=== PATIENT | male | born 1965 | race Caucasian/White ===

== ENCOUNTER 2017-01-06 12:23 | Emergency (ER) | payer OTHER ==
[~2017-01-06] VITALS: Ht 182.9 cm; Wt 79.5 kg
[~2017-01-06 12:23] MED LIST: METO25TA6 PO; PRE20 PO
[2017-01-06 12:33] VITALS: BP 118/77; PULSE 69; RESP 16; O2SAT 98
--- NOTE | 2017-01-06 12:43 | ED.REPORT ---
HPI-Abd Pain M 40 and Over Date of Service Jan 06, 2017 ED Provider: Geovanny Fuller MD Tono is a Slovak-speaking 51-year-old male with a history of Parkinson's disease who presents with chief complaint of nausea and vomiting. Reports three -day history of nausea and vomiting, epigastric abdominal pain, decreased appetite, feeling hot and cold and loose stools. Denies heartburn, hematemesis , hematochezia, melena, measured fever, chest pain, palpitations, cough, wheeze , shortness of breath. States he has been unable to take his medications for 3 days. Nursing Notes Stated Complaint: NAUSEA,VOMITING Chief Complaint: Male Abdominal Pain Nursing Notes Reviewed: Yes Allergies: Coded Allergies: No Known Allergies (Verified Allergy, Unknown, 11/16/16) Scheduled Metoprolol Tartrate (Metoprolol Tartrate) 25 Mg Tablet 12.5 MG PO BID In Slovak please Prednisone (PredniSONE) 20 Mg Tablet 20 MG PO DAILY Scheduled PRN Promethazine (Promethazine) 25 Mg Tablet 25 MG PO Q6H PRN PRN For Nausea General Time Seen by MD: 12:43 Chief Complaint Other (vomiting) Sudden in Onset?: No Past Medical History Past Medical History Parkinson's Disease causing chronic neck and bilateral shoulder pain Reports: Hypertension Past Surgical History None Family History noncontributory Smoking History Former Smoker Social History Alcohol Use: Denies alcohol use Drug Use: Denies drug use Other Social History: Occupation lives with family Ambulatory Status Independent Review of Systems Review of Systems Note: Negative unless stated otherwise in history of present illness Physical Exam General: Well appearing, well developed, well nourished, no acute distress. Head: Atraumatic, normocephalic. Eyes: No scleral icterus or injection. No discharge. Vision grossly intact. ENT: Voice clear, hearing grossly intact. Respiratory: Regular rate and rhythm. Breath sounds present, clear to auscultation and equal bilaterally. No respiratory distress. No increased work of breathing, speaks in complete sentences. Cardiovascular: Regular rate and rhythm, without murmur, gallop or rub. No pedal edema. Gastrointestinal: Abdomen slightly distended but non-tender without guarding or rebound. Bowel sounds normoactive. Skin: Warm and dry. Neurological: Grossly nonfocal. Psychological: Alert and oriented. Speech appropriate, linear and logical. Behavior appropriate. Initial Vital Signs Vital Signs (First) Date Time Temp Pulse Resp B/P Pulse Ox O2 Delivery O2 Flow Rate FiO2 01/06/17 12:33 36.0 69 16 118/77 98 01/06/17 16:04 Room Air Initial VS: Reviewed, Vital signs normal Interpretation & Diagnostics Lab Results Interpretation Result Diagram: 01/06/17 1330 01/06/17 1330 Test 01/06/17 13:30 01/06/17 16:19 White Blood Count 5.7th/mm3 (3.8-10.1) Red Blood Count 4.61mil/mm3 (4.40-5.80) Hemoglobin 14.5g/dL (13.8-17.2) Hematocrit 41.6% (41.0-50.0) Mean Corpuscular Volume 90.2fL (81-100) Mean Corpuscular Hemoglobin 31.5pg (27.0-35.0) Mean Corpuscular Hemoglobin Concent 34.9% (32.0-37.0) Red Cell Distribution Width 12.6% (12.3-15.4) Platelet Count 226bil/L (150-400) Neutrophils (%) (Auto) 35.8% (40-74) Lymphocytes (%) (Auto) 45.3% (14-46) Monocytes (%) (Auto) 16.5% (4-12) Eosinophils (%) (Auto) 1.6% (0-5) Basophils (%) (Auto) 0.4% (0-3) Sodium Level 134mEq/L (134-144) Potassium Level 3.6mEq/L (3.5-5.2) Chloride Level 93mEq/L (97-108) Carbon Dioxide Level 30mmol/L (18-29) Blood Urea Nitrogen 9mg/dL (6-24) Creatinine 0.72mg/dL (0.76-1.27) Estimat Glomerular Filtration Rate 122mL/min (>59) Glucose Level 99mg/dL (60-99) Calcium Level 9.4mg/dL (8.5-10.1) Total Bilirubin 0.5mg/dL (0.0-1.2) Aspartate Amino Transf (AST/SGOT) 10U/L (0-50) Alanine Aminotransferase (ALT/SGPT) 5U/L (0-44) Alkaline Phosphatase 70U/L (25-150) Total Protein 7.2g/dL (6.4-8.4) Albumin 4.3g/dL (3.4-5.0) Lipase 35U/L (13-60) Hold Duran Top Tube Received (Received) Urine Color Straw (YELLOW) Urine Appearance Clear (CLEAR,HAZY) Urine pH 7.0 (5.0-8.0) Urine Specific [place] 1.005 (1.003-1.035) Urine Protein Negativemg/dL (NEG,TRACE) Urine Glucose (UA) Negativemg/dL (NEGATIVE) Urine Ketones Negativemg/dL (NEGATIVE) Urine Occult Blood Trace (NEGATIVE) Urine Nitrite Negative (NEGATIVE) Urine Bilirubin Negative (NEGATIVE) Urine Urobilinogen Normalmg/dL (NORMAL) Urine Leukocyte Esterase Negative (NEGATIVE) Urine RBC 0-2/hpf (0-2) Urine WBC 0-5/hpf (0-5) Urine Epithelial Cells None/hpf (NONE-MOD) Urine Crystals None seen (NONE SEEN) Urine Bacteria Few/hpf (NONE-FEW) Urine Hyaline Casts None/lpf (NONE) Urine Granular Casts None seen (NONE SEEN) Urine Waxy Casts None seen (NONE SEEN) Urine Red Blood Cell Casts None seen (NONE SEEN) Urine White Blood Cell Casts None seen (NONE SEEN) Urine Mucus None seen (None Seen) Urine Trichomonas None seen (NONE SEEN) Urine Yeast None (NONE SEEN) Urinalysis Comment None Urine Culture Reflexed Not indicated Lab Results Interpretation: Chloride slightly low at 93 Carbon dioxide slightly high at 30 creatinine low at 0.72 Not thought to be clinically relevant. Re-Eval/Medical Decision Med Decision/Clinical Course 51-year-old male with chief complaint of vomiting for 3 days. Physical exam reveals only mild epigastric tenderness without guarding or rebound. CBC, CMP and lipase are essentially normal, urinalysis is normal. Patient responds well to antiemetics, passes by mouth challenge. I believe this is a viral gastritis as opposed to bleeding ulcer, pancreatitis, cholecystitis, appendicitis. I believe he is stable and safe for discharge Discussed this with the patient who does not appear happy about that diagnosis but agrees with the plan and is prepared for discharge. Time of Eval: 17:12 Re-Evaluation/Progress Note: Patient reports that he still feels quite tired. He successfully drank a lot of water and was able to keep it down and his nausea is improved. Discharge & Departure Primary Impression: Gastritis Disposition: Home Vital Signs - All Vital Signs Date Time Temp Pulse Resp B/P Pulse Ox O2 Delivery O2 Flow Rate FiO2 01/06/17 17:23 36.0 59 18 138/67 97 Room Air 01/06/17 16:33 59 138/67 97 Room Air 01/06/17 16:04 65 18 150/77 99 Room Air 01/06/17 12:33 36.0 69 16 118/77 98 )( All Prior VS Reviewed: Yes Condition: Stable Patient Instructions: Gastritis (ED) Additional Instructions: Evaluation for vomiting the emergency department. Based on physical examination , blood, urine tests I feel it is unlikely that the pain is caused by a dangerous condition such as pancreatitis, bleeding ulcer, or gallbladder infection. I believe this is most likely a viral gastritis. This should pass in a few days. I will give a prescription for the antinausea medication that worked for you in the emergency department. Rest, drink small amounts of fluid throughout the day , each small amounts of food as tolerated. If you are not feeling substantially better in 3 days' please follow up with her primary care provider. Return to emergency department for new or worsening symptoms including bloody/ tarry stool, vomiting blood, increasing abdominal pain Referrals: Reggie Longoria MD (PCP) EDSupervising Provider for APC: Geovanny Fuller MD Attending Statement Attending attestation: I saw this patient in conjunction with Alexx Goel PA-C. I agree with the workup, evaluation, treatment and disposition. Geovanny Vazquez MD, MD Jan 06, 2017 12:43 Alexx Goel PA-C Jan 06, 2017 15:10
[2017-01-06] MEDS ORDERED: 0.9% Sodium Chloride 1,000 ML IV ONE ×2 (13:04→15:05)
[2017-01-06] MEDS ORDERED: Ondansetron 2 mg/mL 2 mL Inj ONE (13:38)
[2017-01-06 14:06] LABS: BASOPHILS % (AUTO) 0.4 % (0-3); EOSINOPHILS % (AUTO) 1.6 % (0-5); MONOCYTES % (AUTO) 16.5 % (4-12); Mean Corpuscular Hemoglobin 31.5 pg (27.0-35.0); Mean Corpuscular Volume 90.2 fL (81-100); NEUTROPHILS % (AUTO) 35.8 % (40-74); Platelet Count 226 bil/L (150-400)
[2017-01-06] MEDS ORDERED: Promethazine Inj 25 MG in Dextrose 5%-Pha MIX 50 ML IV ONE (15:05)
[2017-01-06 16:04] VITALS: BP 150/77; PULSE 65; RESP 18; O2SAT 99
[2017-01-06 16:33] VITALS: BP 138/67; PULSE 59; O2SAT 97
[2017-01-06 16:54] LABS: APPEARANCE,URINE CLEAR (CLEAR,HAZY); COLOR,URINE STRAW (YELLOW); OCCULT BLOOD,URINE TRACE (NEGATIVE); UROBILINOGEN,URINE NORMAL (NORMAL)
[2017-01-06] MEDS ORDERED: PROM25TA14 PO (17:16)
[2017-01-06 17:23] VITALS: BP 138/67; PULSE 59; RESP 18; O2SAT 97
== END 2017-01-06 17:24 | disposition home or self-care (01) ==
LOC: SED 12:23
DX: K29.70 Gastritis, unspecified, without bleeding (principal); G20 Parkinson's disease; I10 Essential (primary) hypertension; Z87.891 Personal history of nicotine dependence
CPT/HCPCS: 36415; 80053; 81000; 83690; 85025; 96361; 96374; 96375; 99284; J2405; J2550; J7030

== ENCOUNTER 2017-02-02 14:34 | Emergency (ER) | payer OTHER ==
[~2017-02-02] VITALS: Ht 180.3 cm; Wt 86.0 kg
[~2017-02-02 14:34] MED LIST changes: +PROM25TA14 PO
[2017-02-02 15:05] VITALS: BP 130/69; PULSE 77; RESP 16; O2SAT 97
[2017-02-02] MEDS ORDERED: 0.9% Sodium Chloride 1,000 ML IV ONE (15:17)
[2017-02-02] MEDS: Ondansetron 2 mg/mL 2 mL Inj IVPUSH PRN ×3 (15:36→20:18)
[2017-02-02 15:48] LABS: BASOPHILS % (AUTO) 0.1 % (0-3); EOSINOPHILS % (AUTO) 0.9 % (0-5); MONOCYTES % (AUTO) 11.7 % (4-12); Mean Corpuscular Hemoglobin 31.3 pg (27.0-35.0); Mean Corpuscular Volume 89.4 fL (81-100); NEUTROPHILS % (AUTO) 63.1 % (40-74); Platelet Count 208 bil/L (150-400)
[2017-02-02 16:09] LABS: Magnesium 1.8 mg/dL (1.6-2.6)
--- NOTE | 2017-02-02 17:08 | ED.REPORT ---
HPI-Abd Pain M 40 and Over Date of Service Feb 02, 2017 ED Provider: Eze Weston MD The patient is a 51 year old, Citizen Of [place] speaking, male w/ a hx of Parkinsons disease and HTN who presents to the ED accompanied by his due to shaking onset this morning. 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 Associated symptoms include nausea, vomiting and diarrhea. Denies issues with anxiety and dysuria. Onset thought to be related to starting carisoprodil. Currently on Tramadol and Baclofen (50 mg 3x/day), he has been out Baclofen for 4 days. Nursing Notes Stated Complaint: NAUSEA,VOMITING Chief Complaint: General Complaint Allergies: Coded Allergies: No Known Allergies (Verified Allergy, Unknown, 11/16/16) Scheduled Metoprolol Tartrate (Metoprolol Tartrate) 25 Mg Tablet 12.5 MG PO BID In Citizen [place] please Prednisone (PredniSONE) 20 Mg Tablet 20 MG PO DAILY Scheduled PRN Promethazine (Promethazine) 25 Mg Tablet 25 MG PO Q6H PRN PRN For Nausea General Time Seen by MD: 17:04 Chief Complaint Other (shaking) Hx Obtained From: Patient Arrived By: Walk-in Sudden in Onset?: Yes Onset Occurred: 5 - 8 hours ago Symptom Duration: Since onset Progression since Onset: Gradually worsening Recent Healthcare: Recent doctor visit Similar Sx Previous: Yes Past Medical History Past Medical History Parkinson's Disease causing chronic neck and bilateral shoulder pain Reports: Hypertension Past Surgical History None Family History noncontributory Smoking History Former Smoker Social History Alcohol Use: Denies alcohol use Drug Use: Denies drug use Other Social History: Occupation lives with family Ambulatory Status Independent Review of Systems GI: Reports: Diarrhea, Nausea, Vomiting Male: Denies Dysuria Complete sys rev & neg: except as marked. Neurologic: Reports: Shaking Psychiatric: Denies: Anxiety Physical Exam Initial Vital Signs Vital Signs (First) Date Time Temp Pulse Resp B/P Pulse Ox O2 Delivery O2 Flow Rate FiO2 02/02/17 15:05 36.6 77 16 130/69 97 Room Air Initial VS: Reviewed Head / Eyes: Atraumatic, Normocephalic, PERRL ENT: Mucous membranes moist, Conjunctiva normal, No scleral icterus Neck: Supple, Non-tender, Full range of motion Extremities: Vascular intact, Neuro intact, No swelling, No tenderness Skin: Warm, Dry, No cyanosis Neurologic: Alert, Oriented, Nonfocal Psychiatric: Mood/affect normal, Behavior normal, Normal thought content General/Constitutional: Awake, Alert, Cooperative Behavior: Positive: Anxious coarse tremor Respiratory / Chest: Atraumatic, Breath sounds NL, No respiratory distress Cardiovascular: Heart rate NL, Regular rhythm, Heart sounds NL, No gallop, No murmurs, No rubs Abdomen: Atraumatic, Soft, Non-tender, No guarding, No rebound, BS normoactive Back: Atraumatic, Inspection NL, Full range of motion, Non-tender Interpretation & Diagnostics Lab Results Interpretation Result Diagram: 02/02/17 1530 02/02/17 1530 Test 02/02/17 15:30 02/02/17 20:10 White Blood Count 8.5th/mm3 (3.8-10.1) Red Blood Count 4.34mil/mm3 (4.40-5.80) Hemoglobin 13.6g/dL (13.8-17.2) Hematocrit 38.8% (41.0-50.0) Mean Corpuscular Volume 89.4fL (81-100) Mean Corpuscular Hemoglobin 31.3pg (27.0-35.0) Mean Corpuscular Hemoglobin Concent 35.1% (32.0-37.0) Red Cell Distribution Width 13.4% (12.3-15.4) Platelet Count 208bil/L (150-400) Neutrophils (%) (Auto) 63.1% (40-74) Lymphocytes (%) (Auto) 24.0% (14-46) Monocytes (%) (Auto) 11.7% (4-12) Eosinophils (%) (Auto) 0.9% (0-5) Basophils (%) (Auto) 0.1% (0-3) Sodium Level 131mEq/L (134-144) Potassium Level 3.4mEq/L (3.5-5.2) Chloride Level 94mEq/L (97-108) Carbon Dioxide Level 23mmol/L (18-29) Blood Urea Nitrogen 12mg/dL (6-24) Creatinine 0.76mg/dL (0.76-1.27) Estimat Glomerular Filtration Rate 115mL/min (>59) Glucose Level 137mg/dL (60-99) Calcium Level 8.3mg/dL (8.5-10.1) Magnesium Level 1.8mg/dL (1.6-2.6) Total Bilirubin 0.2mg/dL (0.0-1.2) Aspartate Amino Transf (AST/SGOT) 9U/L (0-50) Alanine Aminotransferase (ALT/SGPT) 5U/L (0-44) Alkaline Phosphatase 68U/L (25-150) Total Protein 6.8g/dL (6.4-8.4) Albumin 4.2g/dL (3.4-5.0) Lipase 23U/L (13-60) Hold Urine Received (Received) Re-Eval/Medical Decision Med Decision/Clinical Course Pt here with nausea, anxiety and tremors. Possibly related to starting carisoprodil or to being off baclofen. Did seem improved post baclofen. Also gave 1 dose of lorazepam and IV antiemetics. Vomiting resolved, still had some tremors. does not appear infected, denied alcohol use so not in withdrawal. Is still having some tremors but is anxious to leave. Time of Eval: 20:52 Patient Status: Mild relief Re-Evaluation/Progress Note: On discharge pt was still a little tremulous but insistent that he wanted to leave immeidately. F/U and RTER warnings given. Pt understands and agrees with plan. Counseled Regarding: Diagnosis, Lab results, Need for follow-up, When/why to return to ED Discharge & Departure Primary Impression: Vomiting Vomiting type: unspecified Vomiting Intractability: non-intractable Nausea presence: with nausea Qualified Code: R11.2 - Nausea with vomiting, unspecified Additional Impression: Coarse tremors Disposition: Home Vital Signs - All Vital Signs Date Time Temp Pulse Resp B/P Pulse Ox O2 Delivery O2 Flow Rate FiO2 02/02/17 18:30 99 16 139/77 98 Room Air 02/02/17 16:47 36.5 02/02/17 15:05 36.6 77 16 130/69 97 Room Air )( All Prior VS Reviewed: Yes Condition: Stable Additional Instructions: Your Emergency Department evaluation today included interview, examination, labs , and ECG. Old records were reviewed. No serious cause for todays symptoms was found. Tremors and anxiety are thought to be related to cariosprodol which was recently started, stop this medication. Continue baclofen every 6 hours. A prescription is provided, we cannot provide the medication itself. I am sending you home with a prescription for Baclofen 20 mg UID. Follow up with your primary care physician. Return to the Emergency Department for any new or worsening symptoms. Referrals: Reggie Longoria MD (PCP) Scribe Attestation Portion of this note were transcribed by Leilani Brandon. I, Dr. Weston, personally performed the history, physical exam, and medical decision-making: I reviewed and confirmed the accuracy for the information in the transcribed note. Signed by: kesha Avendaño, 02/02/17 2000 copies to: Reggie Longoria MD, Donald L MD Feb 02, 2017 17:08 Leilani Brandon Feb 02, 2017 17:16
[2017-02-02 18:30] VITALS: BP 139/77; PULSE 99; RESP 16; O2SAT 98
[2017-02-02] MEDS ORDERED: LORazepam 2 mg Tablet PO ONE (18:50)
== END 2017-02-02 20:52 | disposition home or self-care (01) ==
LOC: SED 14:34 → EDBD 14:34 → EDUNIT# 14:34 → SED 20:52
DX: R11.2 Nausea with vomiting, unspecified (principal); G25.2 Other specified forms of tremor; R19.7 Diarrhea, unspecified; G20 Parkinson's disease; I10 Essential (primary) hypertension; Z87.891 Personal history of nicotine dependence
CPT/HCPCS: 36415; 80053; 83690; 83735; 85025; 96361; 96374; 96376; 99284; J2405; J7030

== ENCOUNTER 2017-03-13 20:02 | Emergency (ER) | payer OTHER ==
[~2017-03-13] VITALS: Ht 182.9 cm; Wt 79.5 kg
[2017-03-13 20:16] VITALS: BP 138/78; PULSE 63; RESP 16; O2SAT 96
[2017-03-13 20:54] LABS: BASOPHILS % (AUTO) 0.1 % (0-3); EOSINOPHILS % (AUTO) 0.4 % (0-5); MONOCYTES % (AUTO) 13.7 % (4-12); Mean Corpuscular Volume 92.5 fL (81-100); NEUTROPHILS % (AUTO) 52.4 % (40-74); Platelet Count 227 bil/L (150-400)
[2017-03-13 21:15] LABS: Magnesium 2.1 mg/dL (1.6-2.6)
--- NOTE | 2017-03-13 21:22 | ED.REPORT ---
HPI-Abd Pain M 40 and Over Date of Service Mar 13, 2017 ED Provider: Anton Varma MD Patient is a 51 year old male with a history of Parkinson's Disease and hypertension who presents to the ED complaining of abdominal pain that began this morning. He reports associated nausea, vomiting, and diarrhea. Patient is unable keep down water, always vomiting it up. Patient reports decreased PO intake today. He also admits to a headache and chills but denies a fever, chest pain, hematemesis, bloody or tarry stool, or cough. Patient denies any previous abdominal surgeries or a history of heart disease. Patient states that there have been some recent adjustments to his medications. This includes a new prescription for Omeprazole. He also running out of the Baclofen, as he only has a #30 supply per month but he can use it up to 3x daily. He has Soma to use as an alternative to Baclofen. Nursing Notes Stated Complaint: STOMACH PAIN Chief Complaint: Male Abdominal Pain Nursing Notes Reviewed: Yes Allergies: Coded Allergies: No Known Allergies (Verified Allergy, Unknown, 03/13/17) Scheduled Baclofen (Baclofen) 20 Mg Tablet 20 MG PO TID Metoprolol Tartrate (Metoprolol Tartrate) 25 Mg Tablet 12.5 MG PO BID In Polish please Prednisone (PredniSONE) 20 Mg Tablet 20 MG PO DAILY Scheduled PRN Ondansetron ODT (Ondansetron ODT) 8 Mg Tab.rapdis 8 MG PO QID PRN PRN For Nausea Promethazine (Promethazine) 25 Mg Tablet 25 MG PO Q6H PRN PRN For Nausea General Time Seen by MD: 21:22 Chief Complaint Abdominal pain Hx Obtained From: Patient, [employer] Manager (Polish) Arrived By: Walk-in Sudden in Onset?: No Onset Occurred: 9 - 12 hours ago Symptom Duration: Since onset Location: : Diffuse Quality: Painful Severity: Current: Moderate Severity: Maximum: Moderate Recent Healthcare: No recent doctor visit, No recent hospitalization Past Medical History Past Medical History Parkinson's Disease causing chronic neck and bilateral shoulder pain Reports: Hypertension Past Surgical History None Family History noncontributory Smoking History Former Smoker Social History Alcohol Use: Denies alcohol use Drug Use: Denies drug use Other Social History: Good social support, , Local resident Occupation lives with family Ambulatory Status Independent Review of Systems Constitutional: Reports: Chills, Denies: Fever Respiratory: Denies: Non-productive cough Cardiovascular: Denies: Chest pain GI: Reports: Abdominal pain, Diarrhea, Nausea, Vomiting, Denies: Bloody/tarry stool, Hematemesis Complete sys rev & neg: except as marked. Neurologic: Reports: Headache Physical Exam Initial Vital Signs Vital Signs (First) Date Time Temp Pulse Resp B/P Pulse Ox O2 Delivery O2 Flow Rate FiO2 03/13/17 20:16 37.4 63 16 138/78 96 03/13/17 22:08 Room Air Initial VS: Reviewed Head / Eyes: Atraumatic, Normocephalic, PERRL Skin: Warm, Dry, No cyanosis Psychiatric: Mood/affect normal, Behavior normal, Normal thought content General/Constitutional: Awake, Alert, No acute distress Distress / Hydration: Positive: Dehydration mild Respiratory / Chest: Breath sounds NL, Breath sounds = bilat, No respiratory distress, No rales, No rhonchi, No wheezing Cardiovascular: Heart rate NL, Regular rhythm, Heart sounds NL, No murmurs Abdomen: Soft, BS normoactive Tenderness/Guarding/Rebound: Positive: Tender diffuse (mild) Bowel Sounds / Distention: Positive: Distention mild Back: Painless range of motion ENT: Airway patent Mouth: Positive: Mucous membranes dry Neck: Supple, No adenopathy, No JVD Upper Extremity / MS: No swelling, No edema Lower Extremity / Pelvis / MS: No swelling, No edema Interpretation & Diagnostics Lab Results Interpretation Result Diagram: 03/13/17204403/13/172044 Test 03/13/17 20:45 White Blood Count 7.9th/mm3 (3.8-10.1) Red Blood Count 4.28mil/mm3 (4.40-5.80) Hemoglobin 13.7g/dL (13.8-17.2) Hematocrit 39.6% (41.0-50.0) Mean Corpuscular Volume 92.5fL (81-100) Mean Corpuscular Hemoglobin 32.0pg (27.0-35.0) Mean Corpuscular Hemoglobin Concent 34.6% (32.0-37.0) Red Cell Distribution Width 13.8% (12.3-15.4) Platelet Count 227bil/L (150-400) Neutrophils (%) (Auto) 52.4% (40-74) Lymphocytes (%) (Auto) 33.3% (14-46) Monocytes (%) (Auto) 13.7% (4-12) Eosinophils (%) (Auto) 0.4% (0-5) Basophils (%) (Auto) 0.1% (0-3) Sodium Level 137mEq/L (134-144) Potassium Level 4.0mEq/L (3.5-5.2) Chloride Level 97mEq/L (97-108) Carbon Dioxide Level 25mmol/L (18-29) Blood Urea Nitrogen 15mg/dL (6-24) Creatinine 0.73mg/dL (0.76-1.27) Estimat Glomerular Filtration Rate 120mL/min (>59) Glucose Level 100mg/dL (60-99) Calcium Level 10.1mg/dL (8.5-10.1) Magnesium Level 2.1mg/dL (1.6-2.6) Total Bilirubin 0.4mg/dL (0.0-1.2) Aspartate Amino Transf (AST/SGOT) 12U/L (0-50) Alanine Aminotransferase (ALT/SGPT) 5U/L (0-44) Alkaline Phosphatase 64U/L (25-150) Total Protein 7.5g/dL (6.4-8.4) Albumin 4.8g/dL (3.4-5.0) Lipase 26U/L (13-60) Hold Duran Top Tube Received (Received) Re-Eval/Medical Decision Med Decision/Clinical Course 51-year-old with vomiting and mild abdominal pain, and relatively benign exam. He has no surgical history. Low risk for surgical disease in the abdomen at present. He declines offers to evaluate this further with CT scanning. Blood labs are actually reassuring and these were shared with him. He prefers to go home and treat his nausea and do a clear liquid progressive diet, and return if he is worsening. He is discharged at his request in stable condition Source of Hx: Old records Time of Eval: 21:40 Patient Status: Condition improved Re-Evaluation/Progress Note: Discussed the patient's lab results, no acute process found. Patient would like to be discharged home at this time, with medication for his symptoms. Patient was encouraged to return if his symptoms worsen, as he may need a CT scan. Discharge instructions and follow-up discussed. All questions were addressed. Return to the ED warnings given. Counseled Regarding: Diagnosis, Lab results, Need for follow-up, When/why to return to ED Discharge & Departure Primary Impression: Generalized abdominal pain Additional Impression: Vomiting Vomiting type: unspecified Vomiting Intractability: non-intractable Nausea presence: with nausea Qualified Code: R11.2 - Nausea with vomiting, unspecified Disposition: Home Vital Signs - All Vital Signs Date Time Temp Pulse Resp B/P Pulse Ox O2 Delivery O2 Flow Rate FiO2 03/13/17 22:08 77 18 141/88 94 Room Air 03/13/17 20:16 37.4 63 16 138/78 96 )( All Prior VS Reviewed: Yes Condition: Stable Patient Instructions: Acute Abdominal Pain (ED), Acute Nausea and Vomiting (ED) , Gastritis (ED) Additional Instructions: Take your omeprazole daily as directed. Take Zofran up to four times daily if needed for nausea Continue your baclofen. This is preferable to the Soma. Follow-up with your doctor in the office Try to maintain your hydration with plenty of fluids, such as Gatorade or Powerade. Start with a simple low fat diet and advance slowly as tolerated. Return here if her pain is worsening despite treatment Referrals: Reggie Longoria MD (PCP) Scribe Attestation Portions of this note were transcribed by Swati Castillo. I, Dr. Varma personally performed the history, physical exam and medical decision-making; I reviewed and confirmed the accuracy of the information in the transcribed note. Signed by: Jil Willard, 03/13/2017 [id number] copies to: Reggie Longoria MD, Christopher W MD Mar 13, 2017 21:22 Swati Castillo Mar 13, 2017 21:32
[2017-03-13] MEDS ORDERED: ONDA8TAB10 PO (21:40)
[2017-03-13] MEDS ORDERED: Ondansetron 8 mg ODT Tablet PO ONE (21:40)
[2017-03-13] MEDS ORDERED: BACL20TA PO (21:43)
[2017-03-13 22:08] VITALS: BP 141/88; PULSE 77; RESP 18; O2SAT 94
== END 2017-03-13 22:08 | disposition home or self-care (01) ==
LOC: SED 20:02
DX: R10.84 Generalized abdominal pain (principal); R11.2 Nausea with vomiting, unspecified; G20 Parkinson's disease; I10 Essential (primary) hypertension; Z87.891 Personal history of nicotine dependence

== ENCOUNTER 2017-04-07 20:14 | Emergency (ER) | payer OTHER ==
[~2017-04-07 20:14] MED LIST changes: +BACL20TA PO; +ONDA8TAB10 PO
[2017-04-07 20:26] VITALS: BP 124/82; PULSE 96; RESP 18; O2SAT 96
[2017-04-07 21:18] LABS: BASOPHILS % (AUTO) 0.8 % (0-3); EOSINOPHILS % (AUTO) 0.7 % (0-5); MONOCYTES % (AUTO) 14.6 % (4-12); Mean Corpuscular Hemoglobin 32.3 pg (27.0-35.0); Mean Corpuscular Volume 91.6 fL (81-100); Platelet Count 245 bil/L (150-400)
--- NOTE | 2017-04-07 21:25 | ED.REPORT ---
HPI-General Illness Date of Service April 07, 2017 ED Provider: Geovanny Fuller MD Pt is a 51 y/o [place]-speaking male w/ a hx of Parkinson's disease and HTN presenting to the ED c/o headache onset 2 days ago. He describes his headache as a squeezing pain which is located at the top of his head. He also reports being hypertensive with systolic BP of 186 at home. He took his regular BP medication today. He c/o associated nausea, mild vomiting 2 days ago after drinking a glass of water. He denies any recent head trauma. No light or sound sensitivity. No fevers or neck stiffness. Not on any blood thinners. The patient was most recently seen in this ED on the of last month with complaints of abdominal pain. He had a benign abdominal exam and was felt to be low risk for acute surgical process. Labs were reassuring and he was discharged. Nursing Notes Stated Complaint: STOMACH PAIN,NAUSEA Chief Complaint: Male Abdominal Pain Nursing Notes Reviewed: Yes Allergies: Coded Allergies: No Known Allergies (Verified Allergy, Unknown, 03/13/17) Scheduled Baclofen (Baclofen) 20 Mg Tablet 20 MG PO TID Metoprolol Tartrate (Metoprolol Tartrate) 25 Mg Tablet 12.5 MG PO BID In [place] please Prednisone (PredniSONE) 20 Mg Tablet 20 MG PO DAILY Scheduled PRN Ondansetron ODT (Ondansetron ODT) 8 Mg Tab.rapdis 8 MG PO QID PRN PRN For Nausea Promethazine (Promethazine) 25 Mg Tablet 25 MG PO Q6H PRN PRN For Nausea General Time Seen by MD: 21:25 Chief Complaint Headache Hx Obtained From: Patient Arrived By: Walk-in Sudden in Onset?: No Onset Occurred: 2 days ago Symptom Duration: Since onset Location: : Head Quality: Painful Severity: Current: Moderate Severity: Maximum: Moderate Recent Healthcare: Recent doctor visit, Recent testing, Prior workup Similar Sx Previous: Yes Past Medical History Past Medical History Parkinson's Disease causing chronic neck and bilateral shoulder pain Reports: Hypertension Past Surgical History None Family History noncontributory Smoking History Former Smoker Social History Alcohol Use: Denies alcohol use Drug Use: Denies drug use Other Social History: Good social support, , Local resident Occupation lives with family Ambulatory Status Independent Review of Systems Full Review of Systems Constitutional: Denies: Chills, Fever GI: Reports: Nausea, Vomiting Neurologic: Reports: Headache, Denies: Vision change Complete sys rev & neg: except as marked. Physical Exam Vital Signs Vital Signs Date Time Temp Pulse Resp B/P Pulse Ox O2 Delivery O2 Flow Rate FiO2 04/07/17 20:26 37 96 18 124/82 96 Room Air Initial VS: Reviewed, Vital signs normal Head / Eyes: Atraumatic, Normocephalic, PERRL ENT: Mucous membranes moist, Conjunctiva normal, No scleral icterus Respiratory: Breath sounds normal, Clear to auscultation, No respiratory distress Cardiovascular: Regular rate & rhythm, Heart sounds normal, Intact distal pulses Abdomen / GI: Soft, Non-tender Extremities: Vascular intact, Neuro intact, No swelling, No tenderness Skin: Warm, Dry, No cyanosis Psychiatric: Mood/affect normal, Behavior normal, Normal thought content General/Constitutional: Awake, Alert, No acute distress, Well appearing, Cooperative, Not toxic appearing Neck: Atraumatic, Supple, No meningismus, Full range of motion Neurologic: Oriented X3, Speech NL, No motor deficits, No sensory deficits, CN II - XII intact, Cerebellar NL, Memory NL Interpretation & Diagnostics Lab Results Interpretation Result Diagram: 04/07/17210404/07/172104 Test 04/07/17 21:05 White Blood Count 6.0th/mm3 (3.8-10.1) Red Blood Count 4.39mil/mm3 (4.40-5.80) Hemoglobin 14.2g/dL (13.8-17.2) Hematocrit 40.2% (41.0-50.0) Mean Corpuscular Volume 91.6fL (81-100) Mean Corpuscular Hemoglobin 32.3pg (27.0-35.0) Mean Corpuscular Hemoglobin Concent 35.3% (32.0-37.0) Red Cell Distribution Width 12.8% (12.3-15.4) Platelet Count 245bil/L (150-400) Neutrophils (%) (Auto) 47.0% (40-74) Lymphocytes (%) (Auto) 36.7% (14-46) Monocytes (%) (Auto) 14.6% (4-12) Eosinophils (%) (Auto) 0.7% (0-5) Basophils (%) (Auto) 0.8% (0-3) Sodium Level 134mEq/L (134-144) Potassium Level 3.8mEq/L (3.5-5.2) Chloride Level 94mEq/L (97-108) Carbon Dioxide Level 26mmol/L (18-29) Blood Urea Nitrogen 7mg/dL (6-24) Creatinine 0.80mg/dL (0.76-1.27) Estimat Glomerular Filtration Rate 108mL/min (>59) Glucose Level 110mg/dL (60-99) Calcium Level 10.0mg/dL (8.5-10.1) Magnesium Level 1.8mg/dL (1.6-2.6) Total Bilirubin 0.5mg/dL (0.0-1.2) Aspartate Amino Transf (AST/SGOT) 11U/L (0-50) Alanine Aminotransferase (ALT/SGPT) 5U/L (0-44) Alkaline Phosphatase 63U/L (25-150) Total Protein 7.7g/dL (6.4-8.4) Albumin 4.4g/dL (3.4-5.0) Lipase 22U/L (13-60) Hold Duran Top Tube Received (Received) Re-Eval/Medical Decision Med Decision/Clinical Course In summary, the patient is a 51-year-old male with past medical history significant for Parkinson disease, who presents with headache x2 days. Patient is [place]-speaking and history was obtained via telephone spanish medical interpreter. Of note chief complaint is status is abdominal pain however he denies this and states that he is here for headache. Our primary and secondary assessment reveals an awake, alert patient in no acute distress. Hemodynamically stable and afebrile. Exam reveals normal neurologic exam. Labs notable as below: CBC: Unremarkable CMP: Unremarkable Suspect the patient's headache represents a migraine or tension type headache. Considered other causes of headache to include: Subdural hemorrhage, subarachnoid hemorrhage, SCHOOL BUSINESS MANAGER tumor, meningitis, encephalitis, venous sinus thrombosis, dissection, temporal arteritis, intracranial hypertension ( psuedotumor cerebri), sinusitis or cervicalgia, although these are less likely based on the history, exam, lab, and radiographic findings as noted above. Based on this, I feel that imaging would be low yield and is not warranted at this time. Discussed the risks and benefits of this with the patient who is in agreement. Also discussed with the patient at length that if symptoms change, worsen, or persist, should return to the ER for reevaluation. They understand and agree with the plan. Patient was treated with IV fluids, Zofran for nausea and Toradol. He reported significant improvement. Given the patient's workup, feel they are safe for discharge. Prior to discharge follow-up and return precautions were reviewed in detail with the patient who verbalized understanding and agreement with the plan. The patient was discharged in stable condition. Time of Eval: 23:36 Patient Status: Condition improved, Mild relief, Pain improved Re-Evaluation/Progress Note: Pt rechecked. Informed pt of plan for treatment. Pt understands and agrees with plan for treatment. F/U instructions and RTER warnings given. All questions addressed. Counseled Regarding: Diagnosis, Lab results, Need for follow-up, When/why to return to ED Discharge & Departure Primary Impression: Headache Headache type: unspecified Headache chronicity pattern: acute headache Intractability: not intractable Qualified Code: R51 - Headache Additional Impressions: Hypertension Hypertension type: essential hypertension Qualified Code: I10 - Essential ( primary) hypertension History of Parkinson's disease Disposition: Home Discharge Condition All VS Reviewed: Yes Condition: Stable Patient Instructions: Acute Headache (ED) Additional Instructions: Thank you for seeking care at the emergency room. It is difficult for us to make definitive diagnoses in the ED but we believe that you are experiencing a headache which may be caused by your high blood pressure. Our primary goal today in the ED was to evaluate you for any life-threatening conditions. Your evaluation was reassuring. Your labs were completely normal. You should follow-up with your primary doctor in the next week. Discuss your blood pressure medication during that visit. You should return to the ED immediately if you develop fever, neck stiffness, confusion, persistent vomiting, or any other concerning signs or symptoms. Thank you for letting us partake in your care today. GOOGLE TRANSLATE: siomara Evans' ginny pomowen'radha v otdelenifrida contrerastlozelana dunn. Niraj chapman' okonchatejeremy'nyye diagnozy v ED, no my siomara hernandez Isjulian kenney byrajeev' vyzvana vashim vysokim krovyanym davleniyem. Nashey glavnoy zadachey segodnya v ED bylo otsenit' vas dlya lyubykh opasnykh dlya zhizni sostoyaniy. Vasha otsenka byla obnadezhivayushchey. Vashi laboratorii byli absolyutno normal'nymi. Vy dolzhny prosledit' za svoim osnovnym vrachom na sleduyushchey nedele. Obsudite vashe lecheniye arterial'nogo davleniya vo vremya etogo vizita. Vy dolzhny nemedlenno vernut'sya k ED, yesli u vas razvilis' likhoradka, zhestkost' shei, sputannost' soznaniya, postoyannaya rvota ana lyubyye drugiye simptomy ana priznaki. Spasibo, chto pozvolili nam prinyat' uchastiye v vashem lechenii segodnya. Referrals: Reggie Longoria MD (PCP) Scribe Attestation Portions of this note were transcribed by Howard Gregory. I, Dr. Fuller personally performed the history, physical exam and medical decision-making; I reviewed and confirmed the accuracy of the information in the transcribed note. Signed by Jil Becerra, 04/07/17 - [id number] copies to: Reggie Longoria MD, Beck O MD April 07, 2017 21:25 HOWARD GREGORY April 07, 2017 21:53
[2017-04-07 21:39] LABS: Magnesium 1.8 mg/dL (1.6-2.6)
[2017-04-07] MEDS ORDERED: 0.9% Sodium Chloride 1,000 ML IV ONE (22:40)
[2017-04-07] MEDS ORDERED: Ondansetron 2 mg/mL 2 mL Inj IVPUSH ONE (22:40)
[2017-04-08 00:08] VITALS: BP 130/99; PULSE 63; O2SAT 96
== END 2017-04-08 00:09 | disposition home or self-care (01) ==
LOC: SED 20:14
DX: R51 Headache (principal); I10 Essential (primary) hypertension; Z87.891 Personal history of nicotine dependence; Z86.69 Personal history of other diseases of the nervous system and sense organs; Z79.52 Long term (current) use of systemic steroids
CPT/HCPCS: 36415; 80053; 83690; 83735; 85025; 96361; 96374; 96375; 99284; J1885; J2405; J7030

== ENCOUNTER 2017-04-15 00:41 | Emergency (ER) | payer OTHER ==
[~2017-04-15] VITALS: Ht 175.3 cm; Wt 83.0 kg
[2017-04-15 00:45] VITALS: BP 126/86; PULSE 88; RESP 16; O2SAT 97
--- NOTE | 2017-04-15 01:02 | ED.REPORT ---
HPI-Abd Pain M 40 and Over Date of Service April 15, 2017 ED Provider: Dr. Yi Pt is a 51 y/o [place] speaking male w/ a hx of Parkinson's and HTN presenting to the ED c/o worsening partial urinary retention onset 2 days ago. He reports he was able to urinate a little bit yesterday but today he has not been able to empty his bladder completely. He c/o associated lower abdominal pain, nausea. He has no diagnosed history of enlarged prostate. The patient does not take medication for his prostate. The last time he tried to empty his bladder was 30 minutes ago and he was unsuccessful. Pt denies fever, chills, vomiting. Nursing Notes Stated Complaint: STOMACH PAIN Chief Complaint: Male Abdominal Pain Nursing Notes Reviewed: Yes Allergies: Coded Allergies: No Known Allergies (Verified Allergy, Unknown, 03/13/17) Scheduled Baclofen (Baclofen) 20 Mg Tablet 20 MG PO TID Metoprolol Tartrate (Metoprolol Tartrate) 25 Mg Tablet 12.5 MG PO BID In [place] please Prednisone (PredniSONE) 20 Mg Tablet 20 MG PO DAILY Scheduled PRN Ondansetron ODT (Ondansetron ODT) 8 Mg Tab.rapdis 8 MG PO QID PRN PRN For Nausea Promethazine (Promethazine) 25 Mg Tablet 25 MG PO Q6H PRN PRN For Nausea General Time Seen by MD: 01:01 Chief Complaint Abdominal pain Hx Obtained From: Patient, Crm Marketing Analyst Arrived By: Walk-in Sudden in Onset?: No Onset Occurred: 2 days ago Symptom Duration: Since onset Progression since Onset: Gradually worsening Location: : Suprapubic Quality: Painful Severity: Current: Moderate Severity: Maximum: Moderate Similar Sx Previous: No Past Medical History Past Medical History Parkinson's Disease causing chronic neck and bilateral shoulder pain Reports: Hypertension Past Surgical History None Family History noncontributory Smoking History Former Smoker Social History Alcohol Use: Denies alcohol use Drug Use: Denies drug use Other Social History: Good social support, , Local resident Occupation lives with family Ambulatory Status Independent Review of Systems Constitutional: Denies: Chills, Fever Respiratory: Denies: Non-productive cough, Shortness of breath Cardiovascular: Denies: Chest pain, Dyspnea on exertion GI: Reports: Abdominal pain, Nausea, Denies: Vomiting Male: Reports Urination decreased, Denies Urinary frequency Complete sys rev & neg: except as marked. Physical Exam Initial Vital Signs Vital Signs (First) Date Time Temp Pulse Resp B/P Pulse Ox O2 Delivery O2 Flow Rate FiO2 04/15/17 00:45 36.1 88 16 126/86 97 Room Air Initial VS: Reviewed, Vital signs normal Head / Eyes: Atraumatic, Normocephalic, PERRL ENT: Mucous membranes moist, Conjunctiva normal, No scleral icterus Neck: Supple, Full range of motion Extremities: Vascular intact, Neuro intact, No swelling, No tenderness Skin: Warm, Dry, No cyanosis Neurologic: Alert, Oriented, Nonfocal Psychiatric: Mood/affect normal, Behavior normal, Normal thought content General/Constitutional: Awake, Alert, No acute distress, Well appearing, Cooperative, Not toxic appearing Respiratory / Chest: Breath sounds NL, Breath sounds = bilat, No respiratory distress, No rales, No rhonchi, No wheezing Cardiovascular: Heart rate NL, Regular rhythm, Heart sounds NL, No gallop, No murmurs, No rubs, Peripheral circulation NL Abdomen: Atraumatic, Soft, No guarding, No rebound Tenderness/Guarding/Rebound: Positive: Tender suprapubic (mild) Back: Full range of motion, Painless range of motion Interpretation & Diagnostics Lab Results Interpretation Result Diagram: 04/15/17 0104 04/15/17 0104 Test 04/15/17 01:04 04/15/17 01:47 White Blood Count 7.1th/mm3 (3.8-10.1) Red Blood Count 4.44mil/mm3 (4.40-5.80) Hemoglobin 14.3g/dL (13.8-17.2) Hematocrit 41.1% (41.0-50.0) Mean Corpuscular Volume 92.6fL (81-100) Mean Corpuscular Hemoglobin 32.2pg (27.0-35.0) Mean Corpuscular Hemoglobin Concent 34.8% (32.0-37.0) Red Cell Distribution Width 12.5% (12.3-15.4) Platelet Count 235bil/L (150-400) Neutrophils (%) (Auto) 52.6% (40-74) Lymphocytes (%) (Auto) 37.9% (14-46) Monocytes (%) (Auto) 8.3% (4-12) Eosinophils (%) (Auto) 1.1% (0-5) Basophils (%) (Auto) 0.1% (0-3) Hold Purple Top Tube Received (Received) Hold Blue Top Tube Received (Received) Sodium Level 132mEq/L (134-144) Potassium Level 3.7mEq/L (3.5-5.2) Chloride Level 95mEq/L (97-108) Carbon Dioxide Level 23mmol/L (18-29) Blood Urea Nitrogen 12mg/dL (6-24) Creatinine 0.82mg/dL (0.76-1.27) Estimat Glomerular Filtration Rate 105mL/min (>59) Glucose Level 141mg/dL (60-99) Lactic Acid Level 1.4mmol/L (0.4-2.0) Calcium Level 9.1mg/dL (8.5-10.1) Magnesium Level 1.9mg/dL (1.6-2.6) Total Bilirubin 0.4mg/dL (0.0-1.2) Aspartate Amino Transf (AST/SGOT) 10U/L (0-50) Alanine Aminotransferase (ALT/SGPT) 5U/L (0-44) Alkaline Phosphatase 61U/L (25-150) Total Protein 6.9g/dL (6.4-8.4) Albumin 4.1g/dL (3.4-5.0) Lipase 29U/L (13-60) Hold Charlotte Top Tube Received (Received) Hold Duran Top Tube Received (Received) Urine Color Yellow (YELLOW) Urine Appearance Clear (CLEAR,HAZY) Urine pH 6.0 (5.0-8.0) Urine Specific Mcdaniels 1.010 (1.003-1.035) Urine Protein Negativemg/dL (NEG,TRACE) Urine Glucose (UA) Negativemg/dL (NEGATIVE) Urine Ketones Negativemg/dL (NEGATIVE) Urine Occult Blood Negative (NEGATIVE) Urine Nitrite Negative (NEGATIVE) Urine Bilirubin Negative (NEGATIVE) Urine Urobilinogen Normalmg/dL (NORMAL) Urine Leukocyte Esterase Negative (NEGATIVE) Urine RBC 0-2/hpf (0-2) Urine WBC 0-5/hpf (0-5) Urine Epithelial Cells None/hpf (NONE-MOD) Urine Crystals None seen (NONE SEEN) Urine Bacteria None/hpf (NONE-FEW) Urine Hyaline Casts None/lpf (NONE) Urine Granular Casts None seen (NONE SEEN) Urine Waxy Casts None seen (NONE SEEN) Urine Red Blood Cell Casts None seen (NONE SEEN) Urine White Blood Cell Casts None seen (NONE SEEN) Urine Mucus None seen (None Seen) Urine Trichomonas None seen (NONE SEEN) Urine Yeast None (NONE SEEN) Urinalysis Comment None Urine Culture Reflexed Not indicated Lab Results Interpretation: 215 mL post void residual 110 mL out after catheterization X-Ray Abdominal Interpretation Normal bowel gas pattern No acute findings Constipation Study: 4 view Interpretation / Wet Read by: Wet read ED physician Re-Eval/Medical Decision Med Decision/Clinical Course 51-year-old male with a history of Parkinson's presenting with urinary retention and lower abdominal pain. His vital signs and labs returned normal. Initially I suspected he may have some BPH that led to his urinary retention, however the Johnson catheter passed easily without obstruction. His postvoid residual was 215, and after the Johnson catheter was placed only 110 ML's of urine was removed. Since there was no obstruction noted and the postvoid residual seem to be somewhat overestimated a elected to remove his Johnson and have him follow-up with his PCP. He has been able to void but does complain of needing to double void prior to emptying completely. Abdominal x-ray shows signs of constipation, increased stool load in the descending colon. I recommended he try to empty his colon with magnesium citrate and see if his symptoms improved. He will return if he becomes unable to void Time of Eval: 03:14 Re-Evaluation/Progress Note: Pt rechecked. Pain decreased after catheter insertion. Informed pt of plan for treatment. Pt understands and agrees with plan for treatment. F/U instructions and RTER warnings given. All questions addressed. Counseled Regarding: Diagnosis, Lab results, Need for follow-up, When/why to return to ED Discharge & Departure Primary Impression: Urinary retention Additional Impressions: Constipation Constipation type: unspecified constipation type Qualified Code: K59.00 - Constipation, unspecified Lower abdominal pain Nausea Ruled Out: UTI (urinary tract infection) Disposition: Home Vital Signs - All Vital Signs Date Time Temp Pulse Resp B/P Pulse Ox O2 Delivery O2 Flow Rate FiO2 04/15/17 03:49 36.1 88 16 119/71 97 Room Air 04/15/17 00:45 36.1 88 16 126/86 97 Room Air )( All Prior VS Reviewed: Yes Condition: Stable Patient Instructions: Constipation (ED), Urinary Retention in Men (ED) Additional Instructions: There is no sign of urine infection. The labs today were all normal. The cause of your symptoms is unclear but may be related to constipation or possibly your prostate. I recommend you see your primary care doctor next week. You may need to be seen by a specialist in this area, the urologist. I have given you a referral number. Return to the emergency department for uncontrolled pain, high fever, vomiting, inability to urinate, or for other concerning symptoms. Referrals: Reggie Longoria MD (PCP) Diamond Stanley MD Attestation Portions of this note were transcribed by Howard Gregory. I, Dr. Weston personally performed the history, physical exam and medical decision-making; I reviewed and confirmed the accuracy of the information in the transcribed note. Signed by Jil Becerra, 04/15/17 - 0200 copies to: Diamond Stanley MD; Reggie Longoria MD, Gary R DO April 15, 2017 01:02 HOWARD GREGORY April 15, 2017 01:27
[2017-04-15] MEDS ORDERED: 0.9% Sodium Chloride 1,000 ML IV ONE (01:31)
[2017-04-15 01:41] LABS: BASOPHILS % (AUTO) 0.1 % (0-3); EOSINOPHILS % (AUTO) 1.1 % (0-5); MONOCYTES % (AUTO) 8.3 % (4-12); Mean Corpuscular Hemoglobin 32.2 pg (27.0-35.0); Mean Corpuscular Volume 92.6 fL (81-100); NEUTROPHILS % (AUTO) 52.6 % (40-74); Platelet Count 235 bil/L (150-400)
[2017-04-15 01:51] LABS: Magnesium 1.9 mg/dL (1.6-2.6)
[2017-04-15 01:56] LABS: APPEARANCE,URINE CLEAR (CLEAR,HAZY); COLOR,URINE YELLOW (YELLOW); OCCULT BLOOD,URINE NEGATIVE (NEGATIVE); UROBILINOGEN,URINE NORMAL (NORMAL)
[2017-04-15] MEDS: Ondansetron 2 mg/mL 2 mL Inj IVPUSH ONE ×2 (02:25→02:50)
[2017-04-15] MEDS: HYDROmorphone 0.5 mg/0.5 mL iSecure Syringe IVPUSH PRN ×2 (02:25→02:50)
[2017-04-15 03:49] VITALS: BP 119/71; PULSE 88; RESP 16; O2SAT 97
--- NOTE | 2017-04-15 09:19 | DRSVH ---
PROCEDURE: X-RAY ACUTE ABDOMINAL SERIES ([id number]) INDICATIONS: abd pain TECHNIQUE: One view chest and two views of the abdomen were acquired. COMPARISON: None. FINDINGS: Surgical changes and devices: None. Chest: Right sided calcified granuloma otherwise the lungs are clear. Heart size is normal. No pleu ral effusions. No pneumoperitoneum. Abdomen: Bowel gas pattern is normal. No suspicious calcifications. Visualized solid organ contour s appear normal. Bones: No suspicious bony lesions. IMPRESSION: Negative acute abdominal series. Dictated by: Magan Méndez M.D. on 04/15/2017 at 9:16 Approved by: Magan Méndez M.D. on 04/15/2017 at 9:17
== END 2017-04-15 03:49 | disposition home or self-care (01) ==
LOC: SED 00:41
DX: R33.9 Retention of urine, unspecified (principal); K59.00 Constipation, unspecified; R10.30 Lower abdominal pain, unspecified; R11.0 Nausea; G20 Parkinson's disease; I10 Essential (primary) hypertension; Z87.891 Personal history of nicotine dependence
CPT/HCPCS: 36415; 51702; 51798; 74022; 80053; 81000; 83605; 83690; 83735; 85025; 96374; 96375; 99285; J1170; J1885; J2405

== ENCOUNTER 2017-07-31 18:08 | Emergency (ER) | payer OTHER ==
[2017-07-31 18:24] VITALS: BP 123/82; PULSE 60; RESP 16; O2SAT 99
[2017-07-31] MEDS ORDERED: 0.9% Sodium Chloride 1,000 ML IV ONE (21:21)
--- NOTE | 2017-07-31 21:22 | ED.REPORT ---
HPI-General Illness Date of Service Jul 31, 2017 ED Provider: Geovanny Fuller MD The patient is a 51 year old Malian speaking male with a history of Parkinson' s disease (2011) and hypertension who present to the ED with chronic neck stiffness/spasm that became increasingly worse earlier this evening. Associated symptoms include chronic back pain, leg cramping and insomnia secondary to discomfort. The patient reports that he has been receiving injections for his Parkinson's to his posterior neck once per month. He is currently followed by Dr. Salvador who directed him to the ED when his symptoms become increasingly worse. Current medication list includes gabapentin, baclophen, renindadine, omeprazole, carbadopa, levadopa, lisionpril. Nursing Notes Stated Complaint: HARD TO BREATH,STIFF NECK Chief Complaint: General Complaint Nursing Notes Reviewed: Yes Allergies: Coded Allergies: No Known Allergies (Verified Allergy, Unknown, 07/31/17) Scheduled Baclofen (Baclofen) 20 Mg Tablet 20 MG PO TID Lisinopril (Lisinopril) 20 Mg Tablet 20 MG PO DAILY Metoprolol Tartrate (Metoprolol Tartrate) 25 Mg Tablet 12.5 MG PO BID In Malian please Prednisone (PredniSONE) 20 Mg Tablet 20 MG PO DAILY Scheduled PRN Ondansetron ODT (Ondansetron ODT) 8 Mg Tab.rapdis 8 MG PO QID PRN PRN For Nausea Promethazine (Promethazine) 25 Mg Tablet 25 MG PO Q6H PRN PRN For Nausea General Time Seen by MD: 21:07 Chief Complaint Other (Neck Pain) Hx Obtained From: Patient, Staff Genetic Counselor Arrived By: Walk-in Sudden in Onset?: No Onset Occurred: 5 - 8 hours ago Symptom Duration: Since onset Location: : Neck Quality: Painful Radiation: : Back Severity: Current: Moderate Severity: Maximum: Moderate Pertinent Negative: Pt denies other symptoms Recent Healthcare: No recent doctor visit, No recent hospitalization Past Medical History Past Medical History Parkinson's Disease causing chronic neck and bilateral shoulder pain Reports: Hypertension Past Surgical History None reported. Family History noncontributory Smoking History Former Smoker Social History Alcohol Use: Denies alcohol use Drug Use: Denies drug use Other Social History: Good social support, , Local resident Occupation lives with family Ambulatory Status Independent Review of Systems + dyspnea Full Review of Systems Musculoskeletal: Reports: Back pain, Extremity pain, Neck pain Psychiatric: Reports: Insomnia Complete sys rev & neg: except as marked. Physical Exam Vital Signs Vital Signs Date Time Temp Pulse Resp B/P Pulse Ox O2 Delivery O2 Flow Rate FiO2 07/31/17 22:26 68 20 134/84 97 Room Air 07/31/17 18:24 36.7 60 16 123/82 99 Room Air Initial VS: Reviewed Extremities: Vascular intact, Neuro intact, No swelling, No tenderness Skin: Warm, Dry, No cyanosis Psychiatric: Mood/affect normal, Behavior normal, Normal thought content General/Constitutional: Awake, Alert, No acute distress Head / Eyes: Atraumatic, Normocephalic, PERRL ENT: Atraumatic, Airway patent, Mucous membranes moist, Pharynx NL Mouth: Negative: Drooling, Mass present, Pooling of secretions Neck: Atraumatic, Supple, Full range of motion, No midline vertebral tend Respiratory / Chest: Atraumatic, Breath sounds NL, Breath sounds = bilat, No respiratory distress Cardiovascular: Heart rate NL, Regular rhythm, Heart sounds NL, No gallop, No murmurs, No rubs, Peripheral circulation NL, Pulses = bilaterally Abdomen: Atraumatic, Soft, Non-tender, No distention Back: Atraumatic, Inspection NL, No CVA tenderness Interpretation & Diagnostics Lab Results Interpretation Result Diagram: 07/31/17213907/31/172139 Test 07/31/17 21:40 White Blood Count 5.6th/mm3 (3.8-10.1) Red Blood Count 4.20mil/mm3 (4.40-5.80) Hemoglobin 13.7g/dL (13.8-17.2) Hematocrit 39.1% (41.0-50.0) Mean Corpuscular Volume 93.1fL (81-100) Mean Corpuscular Hemoglobin 32.6pg (27.0-35.0) Mean Corpuscular Hemoglobin Concent 35.0% (32.0-37.0) Red Cell Distribution Width 12.6% (12.3-15.4) Platelet Count 238bil/L (150-400) Neutrophils (%) (Auto) 43.2% (40-74) Lymphocytes (%) (Auto) 42.7% (14-46) Monocytes (%) (Auto) 12.6% (4-12) Eosinophils (%) (Auto) 1.3% (0-5) Basophils (%) (Auto) 0.2% (0-3) Sodium Level 138mEq/L (134-144) Potassium Level 4.2mEq/L (3.5-5.2) Chloride Level 100mEq/L (97-108) Carbon Dioxide Level 25mmol/L (18-29) Blood Urea Nitrogen 10mg/dL (6-24) Creatinine 0.68mg/dL (0.76-1.27) Estimat Glomerular Filtration Rate 131mL/min (>59) Glucose Level 104mg/dL (60-99) Calcium Level 8.8mg/dL (8.5-10.1) Magnesium Level 2.1mg/dL (1.6-2.6) Total Bilirubin 0.4mg/dL (0.0-1.2) Aspartate Amino Transf (AST/SGOT) 9U/L (0-50) Alanine Aminotransferase (ALT/SGPT) 5U/L (0-44) Alkaline Phosphatase 69U/L (25-150) Total Protein 7.3g/dL (6.4-8.4) Albumin 4.2g/dL (3.4-5.0) Re-Eval/Medical Decision Med Decision/Clinical Course The patient is a 51 year old Malian speaking male with a history of Parkinson' s disease (2011) and hypertension who present to the ED with chronic neck stiffness/spasm that became increasingly worse earlier this evening. Associated symptoms include chronic back pain, leg cramping and insomnia secondary to discomfort. The patient reports that he has been receiving injections for his Parkinson's to his posterior neck once per month. He is currently followed by Dr. Salvador who directed him to the ED when his symptoms become increasingly worse. Current medication list includes gabapentin, baclophen, renindadine, omeprazole, carbadopa, levadopa, lisionpril. Here in the emergency department the patient is afebrile with stable vital signs and examination as above. My primary concern in regards to the patient's "cramping" in the setting of recent injections would be for soft tissue infection such as abscess/cellulitis however there is no evidence thereof. His airway is widely patent and there is no visible swelling of his neck whatsoever. He is afebrile without any meningismus in his neck is supple with full range of motion. There are no findings suggestive of meningitis. In discussing the patient's symptoms with him it appears that these are very chronic in nature and related to his underlying MS. The patient was treated with the below medications: IV Fluids Zofran Dilaudid Laboratory studies were obtained as below: CBC RBC - 4.2 Hgb - 13.7 Hct- 39.1 CMP Creat - 0.68 Glucose - 104 Patient is on many medications for his chronic body aches/cramping presumed secondary to his underlying MS. In discussing management options with the patient it seems that he is tried essentially everything that I could pharmacologically recommend the moment. I have reluctantly treated him with hydromorphone as I see that there are not many other therapeutic options available. He states that [place] has helped in the past and I provided him a limited supply of this medication. At this time, I feel that the patient is appropriate for discharge. He will follow-up with his neurologist for ongoing symptom management. Prior to discharge follow-up and return precautions were reviewed in detail with the patient who verbalized understanding and agreement with the plan. The patient was discharged in stable condition. Time of Eval: 23:05 Patient Status: Condition improved, Pain improved Re-Evaluation/Progress Note: Patient condition is re-evaluated. He is informed of his current and pending results. All questions about the intended treatment plan are addressed. Patient understands and agrees with the plan. Counseled Regarding: Diagnosis, Lab results, Need for follow-up, When/why to return to ED Discharge & Departure Primary Impression: Neck pain Additional Impressions: Body aches Parkinson disease Disposition: Home Discharge Condition All VS Reviewed: Yes Condition: Improved Patient Instructions: Chronic Neck Pain (GEN) Additional Instructions: Thank you for seeking care at emergency room. It is difficult for us to make definitive diagnoses in the ED but we believe that you are experiencing pain related to your Parkinson's. Our primary goal today in the ED was to evaluate you for any life-threatening conditions. Your evaluation was reassuring. You have been prescribed a 30 days supply of Lisinopril, see primary doctor for refills. You should follow-up with your primary doctor in the next week and follow up with Dr. Salvador as soon as possible. You should return to the ED immediately if you develop worsening pain, swelling , fevers, vomiting, lightheadedness, weakness or any other concerning signs or symptoms. Thank you for letting us partake in your care today. Referrals: Reggie Longoria MD (PCP) Scribe Attestation Portions of this note were transcribed by Castro Lopez. I, Dr. Fuller, personally performed the history, physical exam and medical decision-making; I reviewed and confirmed the accuracy of the information in the transcribed note. Signed by: Castro Lopez, 07/31/17. copies to: Reggie Longoria MD, Beck O MD Jul 31, 2017 21:22 CASTRO LOPEZ Jul 31, 2017 21:27
[2017-07-31] MEDS ORDERED: Ondansetron 2 mg/mL 2 mL Inj IVPUSH PRN (21:25)
[2017-07-31] MEDS ORDERED: HYDROmorphone 0.5 mg/0.5 mL iSecure Syringe IVPUSH PRN (21:25)
[2017-07-31 21:44] LABS: BASOPHILS % (AUTO) 0.2 % (0-3); EOSINOPHILS % (AUTO) 1.3 % (0-5); MONOCYTES % (AUTO) 12.6 % (4-12); Mean Corpuscular Hemoglobin 32.6 pg (27.0-35.0); Mean Corpuscular Volume 93.1 fL (81-100); NEUTROPHILS % (AUTO) 43.2 % (40-74); Platelet Count 238 bil/L (150-400)
[2017-07-31] MEDS ORDERED: _HYDROcodone/APAP 5-325 mg Tablet PO PRN (22:00)
[2017-07-31 22:04] LABS: Magnesium 2.1 mg/dL (1.6-2.6)
[2017-07-31 22:26] VITALS: BP 134/84; PULSE 68; RESP 20; O2SAT 97
[2017-07-31] MEDS ORDERED: LISI-567 PO (22:32)
== END 2017-07-31 22:38 | disposition home or self-care (01) ==
LOC: SED 18:08
DX: M54.2 Cervicalgia (principal); G20 Parkinson's disease; M62.838 Other muscle spasm; G89.29 Other chronic pain; G47.00 Insomnia, unspecified; I10 Essential (primary) hypertension; Z87.891 Personal history of nicotine dependence
CPT/HCPCS: 36415; 80053; 83735; 85025; 96361; 96374; 96375; 99284; J1170; J2405; J7030

== ENCOUNTER 2017-08-07 19:25 | Emergency (ER) | payer OTHER ==
[~2017-08-07 19:25] MED LIST changes: +LISI-567 PO
[2017-08-07 19:30] VITALS: BP 110/69; PULSE 108; RESP 16; O2SAT 96
--- NOTE | 2017-08-07 21:38 | ED.REPORT ---
HPI-General Illness Date of Service Aug 07, 2017 ED Provider: Alexandre Novoa MD Pt is a 51 year old male with a history of HTN, and chronic neck and back pain due to Parkinson's who presents to the ED complaining of back pain. He c/o associated neck pain and right calf pain. Pt also reports a mild cough. He denies abdominal pain, vomiting, and fever. The pt reports that his medication are not providing relief for his pain and he has been unable to sleep secondary to the pain. Pt reports that he commonly experiences the back pain with Parkinson's. Pt presented to the ED on 07/31/17 with similar sympmtoms and he was discharged with a diagnosis of neck pain, body aches, and Parkinson disease. Nursing Notes Stated Complaint: PARKINSONS/HIGH BP Chief Complaint: General Complaint Nursing Notes Reviewed: Yes Allergies: Coded Allergies: No Known Allergies (Verified Allergy, Unknown, 08/07/17) Scheduled Baclofen (Baclofen) 20 Mg Tablet 20 MG PO TID Fluticasone Propionate (Fluticasone Propionate Nasal) 16 Gm Sanders.susp 2 SPRAY NS BID Lisinopril (Lisinopril) 20 Mg Tablet 20 MG PO DAILY Metoprolol Tartrate (Metoprolol Tartrate) 25 Mg Tablet 12.5 MG PO BID In Thai please Prednisone (PredniSONE) 20 Mg Tablet 20 MG PO DAILY Scheduled PRN Ondansetron ODT (Ondansetron ODT) 8 Mg Tab.rapdis 8 MG PO QID PRN PRN For Nausea Promethazine (Promethazine) 25 Mg Tablet 25 MG PO Q6H PRN PRN For Nausea General Time Seen by MD: 21:37 Chief Complaint Back pain Hx Obtained From: Patient Arrived By: Walk-in Sudden in Onset?: No Onset Occurred: Onset unknown Symptom Duration: Since onset Location: : Back: NeckNo: Abdomen Quality: Painful Radiation: : Does not radiate Severity: Current: Moderate Severity: Maximum: Moderate Recent Healthcare: Recent doctor visit Similar Sx Previous: Yes Past Medical History Past Medical History Parkinson's Disease causing chronic neck and bilateral shoulder pain Reports: Hypertension Past Surgical History None reported. Family History noncontributory Smoking History Former Smoker Social History Alcohol Use: Denies alcohol use Drug Use: Denies drug use Other Social History: Good social support, , Local resident Occupation lives with family Ambulatory Status Independent Review of Systems Full Review of Systems Constitutional: Denies: Fever Respiratory: Reports: Non-productive cough GI: Denies: Abdominal pain, Vomiting Musculoskeletal: Reports: Back pain, Extremity pain, Neck pain Complete sys rev & neg: except as marked. Physical Exam Vital Signs Vital Signs Date Time Temp Pulse Resp B/P Pulse Ox O2 Delivery O2 Flow Rate FiO2 08/07/17 23:34 36.4 95 16 109/67 96 Room Air 08/07/17 19:30 36.4 108 16 110/69 96 Room Air Initial VS: Reviewed, Vital signs normal Head / Eyes: Atraumatic, Normocephalic Respiratory: Breath sounds normal, Clear to auscultation, No respiratory distress Cardiovascular: Regular rate & rhythm, Heart sounds normal, Intact distal pulses Extremities: Vascular intact, Neuro intact Psychiatric: Mood/affect normal, Behavior normal General/Constitutional: Awake, Alert, No acute distress Back: Atraumatic, Full range of motion No restriction of movement Skin: Atraumatic, No rash, Warm, Dry, Intact Neurologic: Oriented X3, Speech NL Tremor consistent with Parkinson's. Interpretation & Diagnostics Lab Results Interpretation Test 08/07/17 23:01 Urine Color Yellow (YELLOW) Urine Appearance Clear (CLEAR,HAZY) Urine pH 6.0 (5.0-8.0) Urine Specific [place] 1.010 (1.003-1.035) Urine Protein Negativemg/dL (NEG,TRACE) Urine Glucose (UA) Negativemg/dL (NEGATIVE) Urine Ketones Negativemg/dL (NEGATIVE) Urine Occult Blood Negative (NEGATIVE) Urine Nitrite Negative (NEGATIVE) Urine Bilirubin Negative (NEGATIVE) Urine Urobilinogen Normalmg/dL (NORMAL) Urine Leukocyte Esterase Negative (NEGATIVE) Urine RBC 0-2/hpf (0-2) Urine WBC 0-5/hpf (0-5) Urine Epithelial Cells Few/hpf (NONE-MOD) Urine Crystals None seen (NONE SEEN) Urine Bacteria Few/hpf (NONE-FEW) Urine Hyaline Casts None/lpf (NONE) Urine Granular Casts None seen (NONE SEEN) Urine Waxy Casts None seen (NONE SEEN) Urine Red Blood Cell Casts None seen (NONE SEEN) Urine White Blood Cell Casts None seen (NONE SEEN) Urine Mucus None seen (None Seen) Urine Trichomonas None seen (NONE SEEN) Urine Yeast None (NONE SEEN) Urinalysis Comment None Urine Culture Reflexed Not indicated Re-Eval/Medical Decision Med Decision/Clinical Course 51-year-old male with a long history of chronic pain and chronic opiate use. I do not feel it mart to continue opiates for his discomfort. He will talk to his primary doctors about alternatives. Source of Hx: Old records Time of Eval: 21:55 Re-Evaluation/Progress Note: Pt rechecked. Pt reports that he no longer takes Vicodin or Percochet. All questions addressed. Time of Eval: 22:50 Re-Evaluation/Progress Note: Pt rechecked. His friend was presents to interpret. Informed pt of lab results containing opiates. Pt reports that he obtained codeine on his last ED visit. Informed pt that narcotics are not good to use long-term. Advised pt to F/U with is PCP to discuss pain management. Informed pt of plan for discharge. Pt understands and agrees with plan for discharge. F/U instructions and RTER warnings given. All questions addressed. Counseled Regarding: Diagnosis, Lab results, Need for follow-up, When/why to return to ED Discharge & Departure Primary Impression: Chronic pain syndrome Additional Impressions: Opioid dependence Substance use status: uncomplicated Qualified Code: F11.20 - Opioid dependence, uncomplicated Nasal congestion Disposition: Home Discharge Condition All VS Reviewed: Yes Condition: Stable Patient Instructions: Opioid Dependence (ED) Additional Instructions: Opiate or narcotic pain medications are not a good idea for chronic pain. Talk to your doctors about an alternative. Flonase 1 spray each nostril daily to help relieve congestion. This takes a few days to work so be patient. Referrals: Jerry Childress MD (PCP) Scribe Attestation Portions of this note were transcribed by Mindi Solorio. I, Dr. Novoa personally performed the history, physical exam and medical decision-making; I reviewed and confirmed the accuracy of the information in the transcribed note. Signed by: Jil Oleary, 08/07/17. copies to: Jerry Childress MD, Howard L MD Aug 07, 2017 21:38 Mindi Spangler Aug 07, 2017 21:47
[2017-08-07] MEDS ORDERED: FLUT16SP NS (23:13)
[2017-08-07 23:34] VITALS: BP 109/67; PULSE 95; RESP 16; O2SAT 96
[2017-08-08 00:19] LABS: APPEARANCE,URINE CLEAR (CLEAR,HAZY); COLOR,URINE YELLOW (YELLOW); OCCULT BLOOD,URINE NEGATIVE (NEGATIVE); UROBILINOGEN,URINE NORMAL (NORMAL)
== END 2017-08-07 23:36 | disposition home or self-care (01) ==
LOC: SED 19:25
DX: G89.4 Chronic pain syndrome (principal); F11.20 Opioid dependence, uncomplicated; R09.81 Nasal congestion; M54.2 Cervicalgia; M79.661 Pain in right lower leg; R05 Cough; Z72.820 Sleep deprivation; I10 Essential (primary) hypertension; G20 Parkinson's disease; Z87.891 Personal history of nicotine dependence
CPT/HCPCS: 81000; 96372; 99284; J1885